=== PATIENT | male | born 1935 | race African-American/Black ===

== ENCOUNTER → 2018-02-24 | Outpatient (CLI) | payer MEDICARE, BC | END | disposition home or self-care (01) | LOC: RAD 11:41 | PROVIDERS: ATTEND Specialist | DX: S22.42XA Multiple fractures of ribs, left side, initial encounter for closed fracture (principal); M85.88 Other specified disorders of bone density and structure, other site; X58.XXXA Exposure to other specified factors, initial encounter; Y93.89 Activity, other specified; Y92.89 Other specified places as the place of occurrence of the external cause; Y99.8 Other external cause status | CPT/HCPCS: 71101 ==

== ENCOUNTER 2019-05-19 09:17 | Emergency (ER) | payer BC ==
[~2019-05-19] VITALS: Ht 182.9 cm; Wt 82.0 kg
[~2019-05-19 09:17] MED LIST: AMLO10TA80 PO; ASCO-339 PO; ATOR-2 PO; CARV3.1242 PO; LEVO100T9 PO; LOSA1TAB34 PO; [UNRECOGNIZED DRUG - CODE] PO
[2019-05-19] MEDS ORDERED: ACETAMINOPHEN 325MG TABLET PO ONE (10:45)
[2019-05-19] MEDS ORDERED: LIDOCAINE HCL/PF 1% 10 MG/ML 5ML VIAL IJ ONE (10:45)
[2019-05-19] MEDS ORDERED: BACITRACIN ZINC OINT UDPKT TOP ONE (10:45)
[2019-05-19] MEDS ORDERED: TETANUS, DIPHTHERIA, PERTUSSIS VAC/PF 0.5ML (>7YR OLD) IM ONE (10:45)
[2019-05-19] MEDS ORDERED: BACITRACIN 15GM TUBE TOP NR (11:00)
[2019-05-19 12:55] VITALS: BP 144/88
== END 2019-05-19 13:00 | disposition home or self-care (01) ==
LOC: ER 09:17
DX: S61.412A Laceration without foreign body of left hand, initial encounter (principal); S61.411A Laceration without foreign body of right hand, initial encounter; S91.312A Laceration without foreign body, left foot, initial encounter; S91.311A Laceration without foreign body, right foot, initial encounter; S61.511A Laceration without foreign body of right wrist, initial encounter; I10 Essential (primary) hypertension; W25.XXXA Contact with sharp glass, initial encounter; Y93.E1 Activity, personal bathing and showering; Y92.9 Unspecified place or not applicable; Z88.8 Allergy status to other drugs, medicaments and biological substances; Z79.82 Long term (current) use of aspirin
CPT/HCPCS: 12002; 73110; 73130; 73630; 90715; 99284; J3490

== ENCOUNTER 2021-08-22 14:47 | Emergency (ER) | payer BC ==
[~2021-08-22] VITALS: Ht 182.9 cm; Wt 81.6 kg
[~2021-08-22 14:47] MED LIST changes: +OMEP40CA20 MT; -[UNRECOGNIZED DRUG - CODE] PO
[2021-08-22 19:30] VITALS: BP 140/77
== END 2021-08-22 20:08 | disposition home or self-care (01) ==
LOC: ER 14:47
DX: S01.81XA Laceration without foreign body of other part of head, initial encounter (principal); S09.8XXA Other specified injuries of head, initial encounter; E78.00 Pure hypercholesterolemia, unspecified; M19.90 Unspecified osteoarthritis, unspecified site; I10 Essential (primary) hypertension; W01.0XXA Fall on same level from slipping, tripping and stumbling without subsequent striking against object, initial encounter; Y93.01 Activity, walking, marching and hiking; Y92.480 Sidewalk as the place of occurrence of the external cause; Z88.8 Allergy status to other drugs, medicaments and biological substances
CPT/HCPCS: 12011; 72170; 99284

== ENCOUNTER 2021-09-24 03:00 | Inpatient (IN) | payer BC ==
[~2021-09-24] VITALS: Ht 180.3 cm; Wt 68.6 kg
[2021-09-24] MEDS ORDERED: MORPHINE SULFATE 4 MG/ML CPJ (NOT FOR IM USE) IV STA (03:09)
[2021-09-24] MEDS ORDERED: ONDANSETRON HCL 4MG/2ML INJ IV STA (03:09)
[2021-09-24 03:38] LABS: BASOPHILS % 0.4 % (0.0-2.0); EOSINOPHILS % 1.5 % (0.0-5.0); HEMATOCRIT. 30.1 % (42.0-52.0); HEMOGLOBIN. 9.4 g/dL (14.0-18.0); LYMPHOCYTES % 14.4 % (20.0-50.0); MEAN CORPUSCULAR HEMOGLOBIN 22.7 pg (28.0-32.0); MEAN CORPUSCULAR VOLUME 72.3 fL (80.0-94.0); MEAN PLATELET VOLUME 7.5 fl (7.4-10.4); MONOCYTES % 8.3 % (2.0-8.0); NEUTROPHILS % 75.4 % (40.0-76.0); PLATELET 171 x1000/uL (130-400); RED BLOOD CELL COUNT 4.16 mill/uL (4.7-6.1); RED CELL DISTRIBUTION WIDTH 18.9 % (11.6-14.6)
[2021-09-24 03:44] LABS: CHLORIDE 108 mEq/L (98-107)
[2021-09-24] MEDS ORDERED: DOCUSATE SODIUM 100MG CAPSULE PO PRN (07:15)
[2021-09-24] MEDS ORDERED: CLONIDINE 0.1MG TABLET PO PRN (07:15)
[2021-09-24] MEDS ORDERED: ONDANSETRON HCL 4MG/2ML INJ IV PRN (07:15)
[2021-09-24] MEDS: AMLODIPINE 10MG TABLET PO SCH ×2 (07:15→09:00)
[2021-09-24] MEDS ORDERED: NALOXONE HCL 0.4MG/ML VIAL IV PRN (07:30)
[2021-09-24] MEDS: HYDROMORPHONE HCL/PF 2MG/ML CPJ IV PRN (12:29)
[2021-09-24 19:33] LABS: T4 FREE 1.18 ng/dL (0.76-1.46)
[2021-09-25] MEDS: HYDROMORPHONE HCL/PF 2MG/ML CPJ IV PRN ×3 (00:19→17:33)
[2021-09-25 04:00] VITALS: BP 146/74
[2021-09-25 04:48] VITALS: BP 134/63
[2021-09-25 07:51] LABS: BASOPHILS % 0.2 % (0.0-2.0); EOSINOPHILS % 0.5 % (0.0-5.0); HEMATOCRIT. 30.3 % (42.0-52.0); HEMOGLOBIN. 9.3 g/dL (14.0-18.0); LYMPHOCYTES % 7.9 % (20.0-50.0); MEAN CORPUSCULAR HEMOGLOBIN 22.4 pg (28.0-32.0); MEAN CORPUSCULAR VOLUME 73.1 fL (80.0-94.0); MEAN PLATELET VOLUME 8.8 fl (7.4-10.4); MONOCYTES % 8.7 % (2.0-8.0); NEUTROPHILS % 82.7 % (40.0-76.0); PLATELET 170 x1000/uL (130-400); RED BLOOD CELL COUNT 4.15 mill/uL (4.7-6.1); RED CELL DISTRIBUTION WIDTH 19.5 % (11.6-14.6)
[2021-09-25 07:54] LABS: CHLORIDE 107 mEq/L (98-107)
[2021-09-25 08:00] VITALS: BP 131/67
[2021-09-25] MEDS: AMLODIPINE 10MG TABLET PO SCH (09:16)
[2021-09-25] MEDS ORDERED: IPRATROPIUM/ALBUTEROL 0.5-3(2.5)MG/3ML NEB HHN PRN (11:45)
[2021-09-25 11:58] LABS: BG BASE EXCESS 2.7 mmol/L (-2.0-2.0); BG CARBOXYHEMOGLOBIN 0.3 % (0.5-1.5); BG DEOXYHEMOGLOBIN 6.8 % (0.0-5.0); BG FRACTION INSPIRED OXYGEN 32; BG HCO3 ACT 27.8 mmol/L (22.0-26.0); BG METHEMOGLOBIN 0.6 % (0.0-1.5); BG OXYGEN SATURATION 93.1 % (92.0-98.5); BG OXYHEMOGLOBIN 92.3 % (94.0-97.0); BG PCO2 45.5 mmHg (35.0-45.0); BG PH 7.404 (7.350-7.450); BG PO2 72.4 mmHg (75.0-100.0); BG SAMPLE SITE LEFT RADIAL; BG VENT MODE NASAL CANNULA
[2021-09-25 12:00] VITALS: BP 113/68
[2021-09-25] MEDS: LEVOTHYROXINE SODIUM 100MCG TABLET PO SCH (13:40)
[2021-09-25] MEDS: CARVEDILOL 3.125 MG TABLET PO SCH ×2 (13:41→20:53)
[2021-09-25 16:00] VITALS: BP 153/76
[2021-09-25] MEDS: CEFTRIAXONE 1,000 MG in DEXTROSE 5% WATER 50 ML IV SCH (16:09)
[2021-09-25] MEDS: METHYLPREDNISOLONE SOD SUCC 40 MG/ML VIAL IV SCH (17:24)
[2021-09-25 20:00] VITALS: BP 132/72
[2021-09-25] MEDS: IPRATROPIUM/ALBUTEROL 0.5-3(2.5)MG/3ML NEB HHN SCH (21:53)
[2021-09-26] VITALS: BP 122/63
[2021-09-26] MEDS: IPRATROPIUM/ALBUTEROL 0.5-3(2.5)MG/3ML NEB HHN SCH ×4 (01:20→21:44)
[2021-09-26 04:00] VITALS: BP 119/67
[2021-09-26 07:34] LABS: ETHANOL BLOOD < 10 mg/dL
[2021-09-26 08:00] VITALS: BP 113/75
[2021-09-26] MEDS: AMLODIPINE 10MG TABLET PO SCH (08:58)
[2021-09-26] MEDS: CARVEDILOL 3.125 MG TABLET PO SCH ×2 (08:59→22:15)
[2021-09-26] MEDS: LEVOTHYROXINE SODIUM 100MCG TABLET PO SCH (08:59)
[2021-09-26] MEDS: HYDROCODONE/APAP 7.5/325MG 1 TAB TABLET PO PRN ×2 (09:00→16:40)
[2021-09-26] MEDS: METHYLPREDNISOLONE SOD SUCC 40 MG/ML VIAL IV SCH ×2 (09:05→16:40)
[2021-09-26] MEDS ORDERED: IOHEXOL-350 100 ML BOTTLE ONE (10:58)
[2021-09-26] MEDS: ACETYLCYSTEINE 100MG/ML 10% VIAL 4ML INH SCH (15:08)
[2021-09-26] MEDS: CYCLOBENZAPRINE 10MG TABLET PO PRN (15:10)
[2021-09-26] MEDS: CEFTRIAXONE 1,000 MG in DEXTROSE 5% WATER 50 ML IV SCH (15:10)
[2021-09-26] MEDS ORDERED: FINA5TAB11 PO (19:54)
[2021-09-26] MEDS ORDERED: ALFU10TA9 PO (19:54)
[2021-09-26 20:00] VITALS: BP 120/58
[2021-09-27] VITALS: BP 141/72
[2021-09-27] MEDS: METHYLPREDNISOLONE SOD SUCC 40 MG/ML VIAL IV SCH ×2 (01:14→08:59)
[2021-09-27] MEDS: IPRATROPIUM/ALBUTEROL 0.5-3(2.5)MG/3ML NEB HHN SCH ×3 (01:31→20:14)
[2021-09-27] MEDS: ACETYLCYSTEINE 100MG/ML 10% VIAL 4ML INH SCH ×3 (01:31→20:15)
[2021-09-27 04:00] VITALS: BP 137/75
[2021-09-27] MEDS: HYDROCODONE/APAP 7.5/325MG 1 TAB TABLET PO PRN (04:01)
[2021-09-27 08:00] VITALS: BP 137/80
[2021-09-27] MEDS: LEVOTHYROXINE SODIUM 100MCG TABLET PO SCH (08:59)
[2021-09-27] MEDS: CARVEDILOL 3.125 MG TABLET PO SCH ×2 (08:59→21:30)
[2021-09-27] MEDS: AMLODIPINE 10MG TABLET PO SCH (08:59)
[2021-09-27 12:00] VITALS: BP 131/67
[2021-09-27] MEDS: CEFTRIAXONE 1,000 MG in DEXTROSE 5% WATER 50 ML IV SCH (13:02)
[2021-09-27] MEDS: FINASTERIDE 5MG TABLET PO SCH (13:02)
[2021-09-27] MEDS: OMEPRAZOLE 20MG CAPSULE EXTENDED RELEASE PO SCH (13:03)
[2021-09-27] MEDS: CYCLOBENZAPRINE 10MG TABLET PO PRN (13:07)
[2021-09-27 20:00] VITALS: BP 148/73
[2021-09-27] MEDS: TERAZOSIN HCL 5MG CAPSULE PO SCH (21:29)
[2021-09-27] MEDS: ASCORBIC ACID 500 MG TABLET PO SCH (21:29)
[2021-09-28] VITALS: BP 113/70
[2021-09-28] MEDS: IPRATROPIUM/ALBUTEROL 0.5-3(2.5)MG/3ML NEB HHN SCH ×3 (01:48→21:40)
[2021-09-28 04:00] VITALS: BP 139/111
[2021-09-28] MEDS: OMEPRAZOLE 20MG CAPSULE EXTENDED RELEASE PO SCH (06:42)
[2021-09-28 08:00] VITALS: BP 139/80
[2021-09-28] MEDS: LEVOTHYROXINE SODIUM 100MCG TABLET PO SCH (08:50)
[2021-09-28] MEDS: FINASTERIDE 5MG TABLET PO SCH (08:50)
[2021-09-28] MEDS: CARVEDILOL 3.125 MG TABLET PO SCH ×2 (08:51→20:51)
[2021-09-28] MEDS: AMLODIPINE 10MG TABLET PO SCH (08:52)
[2021-09-28] MEDS: ASCORBIC ACID 500 MG TABLET PO SCH ×2 (09:00→20:52)
[2021-09-28] MEDS ORDERED: PREDNISONE 20MG TABLET PO SCH (09:00)
[2021-09-28] MEDS ORDERED: LORAZEPAM 2MG/ML CPJ IV PRN (10:30)
[2021-09-28] MEDS: CEFTRIAXONE 1,000 MG in DEXTROSE 5% WATER 50 ML IV SCH (13:31)
[2021-09-28] MEDS: CYCLOBENZAPRINE 10MG TABLET PO PRN (13:54)
[2021-09-28 20:00] VITALS: BP 124/78
[2021-09-28] MEDS: TERAZOSIN HCL 5MG CAPSULE PO SCH (20:52)
[2021-09-28] MEDS: FAMOTIDINE 20MG TABLET PO SCH (20:53)
[2021-09-28] MEDS ORDERED: ZOLPIDEM TARTRATE 5MG TABLET PO PRN (21:00)
[2021-09-28] MEDS: ACETYLCYSTEINE 100MG/ML 10% VIAL 4ML INH SCH (21:50)
[2021-09-29] VITALS: BP 124/63
[2021-09-29] MEDS: IPRATROPIUM/ALBUTEROL 0.5-3(2.5)MG/3ML NEB HHN SCH ×4 (03:50→20:11)
[2021-09-29 04:00] VITALS: BP 95/54
[2021-09-29] MEDS: FAMOTIDINE 20MG TABLET PO SCH ×2 (06:46→21:02)
[2021-09-29] MEDS: ACETYLCYSTEINE 100MG/ML 10% VIAL 4ML INH SCH ×2 (08:43→13:55)
[2021-09-29] MEDS: LEVOTHYROXINE SODIUM 100MCG TABLET PO SCH (09:00)
[2021-09-29] MEDS: ASCORBIC ACID 500 MG TABLET PO SCH ×2 (11:18→21:02)
[2021-09-29] MEDS: AMLODIPINE 10MG TABLET PO SCH (11:19)
[2021-09-29] MEDS: FINASTERIDE 5MG TABLET PO SCH (11:19)
[2021-09-29] MEDS: CARVEDILOL 3.125 MG TABLET PO SCH ×2 (11:20→21:06)
[2021-09-29 13:00] VITALS: BP 119/70
[2021-09-29] MEDS: CEFTRIAXONE 1,000 MG in DEXTROSE 5% WATER 50 ML IV SCH (13:47)
[2021-09-29 16:19] VITALS: BP 123/76
[2021-09-29 16:35] LABS: HEMATOCRIT. 29.9 % (42.0-52.0); HEMOGLOBIN. 9.2 g/dL (14.0-18.0); MEAN CORPUSCULAR HEMOGLOBIN 22.2 pg (28.0-32.0); MEAN CORPUSCULAR VOLUME 72.7 fL (80.0-94.0); MEAN PLATELET VOLUME 8.8 fl (7.4-10.4); PLATELET 171 x1000/uL (130-400); RED BLOOD CELL COUNT 4.12 mill/uL (4.7-6.1)
[2021-09-29 16:52] LABS: CHLORIDE 101 mEq/L (98-107)
[2021-09-29 20:00] VITALS: BP 118/71
[2021-09-29 20:04] LABS: PLATELET ESTIMATE NORMAL
[2021-09-29] MEDS: TERAZOSIN HCL 5MG CAPSULE PO SCH (21:05)
[2021-09-29] MEDS: ACETAMINOPHEN 325MG TABLET PO PRN (21:05)
[2021-09-30] VITALS: BP 112/62
[2021-09-30] MEDS: ACETYLCYSTEINE 100MG/ML 10% VIAL 4ML INH SCH ×3 (00:36→14:45)
[2021-09-30] MEDS: IPRATROPIUM/ALBUTEROL 0.5-3(2.5)MG/3ML NEB HHN SCH ×4 (00:36→22:45)
[2021-09-30] MEDS: ACETAMINOPHEN 325MG TABLET PO PRN (01:24)
[2021-09-30 04:00] VITALS: BP 121/65
[2021-09-30] MEDS: FAMOTIDINE 20MG TABLET PO SCH ×2 (06:40→22:03)
[2021-09-30 08:00] VITALS: BP 108/45
[2021-09-30] MEDS: LEVOTHYROXINE SODIUM 100MCG TABLET PO SCH (09:15)
[2021-09-30] MEDS: FINASTERIDE 5MG TABLET PO SCH (09:16)
[2021-09-30] MEDS: AMLODIPINE 10MG TABLET PO SCH (09:16)
[2021-09-30] MEDS: CARVEDILOL 3.125 MG TABLET PO SCH ×2 (09:17→21:00)
[2021-09-30] MEDS: ASCORBIC ACID 500 MG TABLET PO SCH ×2 (09:17→22:03)
[2021-09-30 12:00] VITALS: BP 108/55
[2021-09-30 12:20] LABS: PROSTRATE SPECIFIC AG TOTAL 1.59 ng/mL (0.0-4.0)
[2021-09-30 16:00] VITALS: BP 110/58
[2021-09-30] MEDS: CEFTRIAXONE 1,000 MG in DEXTROSE 5% WATER 50 ML IV SCH (19:21)
[2021-09-30 20:00] VITALS: BP 98/56
[2021-09-30] MEDS: TERAZOSIN HCL 5MG CAPSULE PO SCH (22:03)
[2021-10-01] VITALS: BP 104/61
[2021-10-01 04:00] VITALS: BP 105/52
[2021-10-01 08:00] VITALS: BP 111/59
[2021-10-01] MEDS: ASCORBIC ACID 500 MG TABLET PO SCH ×2 (08:50→22:23)
[2021-10-01] MEDS: AMLODIPINE 10MG TABLET PO SCH (08:50)
[2021-10-01] MEDS: LEVOTHYROXINE SODIUM 100MCG TABLET PO SCH (08:50)
[2021-10-01] MEDS: FINASTERIDE 5MG TABLET PO SCH ×2 (08:50→22:23)
[2021-10-01] MEDS: CARVEDILOL 3.125 MG TABLET PO SCH ×2 (08:50→22:23)
[2021-10-01] MEDS: FAMOTIDINE 20MG TABLET PO SCH ×2 (08:51→22:23)
[2021-10-01] MEDS: ACETYLCYSTEINE 100MG/ML 10% VIAL 4ML INH SCH ×2 (09:17→14:15)
[2021-10-01] MEDS: IPRATROPIUM/ALBUTEROL 0.5-3(2.5)MG/3ML NEB HHN SCH ×3 (09:17→21:07)
[2021-10-01 12:00] VITALS: BP 105/64
[2021-10-01 14:06] LABS: BG BASE EXCESS 7.7 mmol/L (-2.0-2.0); BG CARBOXYHEMOGLOBIN 0.2 % (0.5-1.5); BG DEOXYHEMOGLOBIN 13.9 % (0.0-5.0); BG FRACTION INSPIRED OXYGEN 21; BG HCO3 ACT 31.3 mmol/L (22.0-26.0); BG METHEMOGLOBIN 0.2 % (0.0-1.5); BG OXYHEMOGLOBIN 85.7 % (94.0-97.0); BG PCO2 39.9 mmHg (35.0-45.0); BG PH 7.512 (7.350-7.450); BG PO2 50.1 mmHg (75.0-100.0); BG SAMPLE SITE LEFT BRACHIAL; BG TOTAL HEMOGLOBIN 10.2 g/dL (12.0-18.0); BG VENT MODE ROOM AIR
[2021-10-01 16:00] VITALS: BP 109/61
[2021-10-01 20:00] VITALS: BP 131/64
[2021-10-01] MEDS: TERAZOSIN HCL 5MG CAPSULE PO SCH (21:00)
[2021-10-02] VITALS: BP 134/65
[2021-10-02] MEDS: IPRATROPIUM/ALBUTEROL 0.5-3(2.5)MG/3ML NEB HHN SCH ×3 (01:39→20:03)
[2021-10-02 04:00] VITALS: BP 144/60
[2021-10-02] MEDS: FAMOTIDINE 20MG TABLET PO SCH ×2 (06:41→21:50)
[2021-10-02] MEDS: TERAZOSIN HCL 5MG CAPSULE PO SCH ×2 (06:44→21:00)
[2021-10-02 08:00] VITALS: BP 110/58
[2021-10-02] MEDS: AMLODIPINE 10MG TABLET PO SCH (10:59)
[2021-10-02] MEDS: FINASTERIDE 5MG TABLET PO SCH (10:59)
[2021-10-02] MEDS: ASCORBIC ACID 500 MG TABLET PO SCH ×2 (10:59→21:50)
[2021-10-02] MEDS: LEVOTHYROXINE SODIUM 100MCG TABLET PO SCH (10:59)
[2021-10-02 12:00] VITALS: BP 105/57
[2021-10-02 13:35] LABS: PROTHROMBIN TIME 10.5 sec (9.6-11.0)
[2021-10-02 16:00] VITALS: BP 109/61
[2021-10-02 20:00] VITALS: BP 104/58
[2021-10-03] VITALS: BP 107/59
[2021-10-03] MEDS: IPRATROPIUM/ALBUTEROL 0.5-3(2.5)MG/3ML NEB HHN SCH ×3 (03:42→20:43)
[2021-10-03 06:31] LABS: CHLORIDE 102 mEq/L (98-107)
[2021-10-03] MEDS: FAMOTIDINE 20MG TABLET PO SCH ×2 (06:39→20:47)
[2021-10-03 06:48] LABS: BASOPHILS % 0.8 % (0.0-2.0); EOSINOPHILS % 3.2 % (0.0-5.0); HEMATOCRIT. 28.9 % (42.0-52.0); HEMOGLOBIN. 9.1 g/dL (14.0-18.0); LYMPHOCYTES % 15.5 % (20.0-50.0); MEAN CORPUSCULAR HEMOGLOBIN 22.6 pg (28.0-32.0); MEAN CORPUSCULAR VOLUME 71.8 fL (80.0-94.0); MEAN PLATELET VOLUME 8.2 fl (7.4-10.4); MONOCYTES % 11.6 % (2.0-8.0); NEUTROPHILS % 68.9 % (40.0-76.0); PLATELET 194 x1000/uL (130-400); RED BLOOD CELL COUNT 4.02 mill/uL (4.7-6.1); RED CELL DISTRIBUTION WIDTH 19.4 % (11.6-14.6)
[2021-10-03 08:00] VITALS: BP 131/65
[2021-10-03] MEDS: ASCORBIC ACID 500 MG TABLET PO SCH ×2 (09:23→20:48)
[2021-10-03] MEDS: AMLODIPINE 10MG TABLET PO SCH (09:24)
[2021-10-03] MEDS: LEVOTHYROXINE SODIUM 100MCG TABLET PO SCH (09:24)
[2021-10-03] MEDS: FINASTERIDE 5MG TABLET PO SCH (09:24)
[2021-10-03 12:00] VITALS: BP 119/68
[2021-10-03 12:10] VITALS: BP 131/65
[2021-10-03 16:00] VITALS: BP 144/77
[2021-10-03 20:00] VITALS: BP 108/58
[2021-10-03] MEDS: TERAZOSIN HCL 5MG CAPSULE PO SCH (20:47)
== END 2021-10-04 00:01 | disposition home or self-care (01) | DRG 551 ==
LOC: ER 03:00 → MICUSO 05:45 → EDBEDREQTM 05:49 → EDBEDREQ 05:49 → ENRESERV 20:29 → 6EST 20:34 → 8WST 09-29 12:16
PROVIDERS: ADMIT Hospitalist; ATTEND Hospitalist
PROC: 4A10X4Z Monitoring of Central Nervous Electrical Activity, External Approach (ICD-10-PCS; principal; 2021-10-03)
DX: M48.061 Spinal stenosis, lumbar region without neurogenic claudication (principal); J96.01 Acute respiratory failure with hypoxia; I50.33 Acute on chronic diastolic (congestive) heart failure; G93.40 Encephalopathy, unspecified; E44.1 Mild protein-calorie malnutrition; G82.20 Paraplegia, unspecified; M48.54XA Collapsed vertebra, not elsewhere classified, thoracic region, initial encounter for fracture; W07.XXXA Fall from chair, initial encounter; D50.9 Iron deficiency anemia, unspecified; D63.8 Anemia in other chronic diseases classified elsewhere; E03.9 Hypothyroidism, unspecified; E78.5 Hyperlipidemia, unspecified; E78.00 Pure hypercholesterolemia, unspecified; K76.89 Other specified diseases of liver; H54.7 Unspecified visual loss; F09 Unspecified mental disorder due to known physiological condition; I44.0 Atrioventricular block, first degree; I73.9 Peripheral vascular disease, unspecified; M48.02 Spinal stenosis, cervical region; T38.0X5A Adverse effect of glucocorticoids and synthetic analogues, initial encounter; G89.29 Other chronic pain; M54.31 Sciatica, right side; I11.0 Hypertensive heart disease with heart failure; Z86.79 Personal history of other diseases of the circulatory system; Z87.891 Personal history of nicotine dependence; Z95.5 Presence of coronary angioplasty implant and graft; Z88.8 Allergy status to other drugs, medicaments and biological substances; Y92.89 Other specified places as the place of occurrence of the external cause; Z68.21 Body mass index [BMI] 21.0-21.9, adult; Y93.89 Activity, other specified; Y99.8 Other external cause status; R79.89 Other specified abnormal findings of blood chemistry; J44.9 Chronic obstructive pulmonary disease, unspecified
CPT/HCPCS: 36415; 36600; 70551; 71045; 71275; 72131; 72141; 72146; 72148; 72170; 74176; 80048; 80053; 80320; 82140; 82375; 82607; 82805; 83735; 83880; 84153; 84439; 84443; 84484; 85025; 85379; 86850; 86900; 93005; 94640; 94667; 95816; 97110; 97116; 97161; 97165; 99291; J0696; J1170; J2060; J2270; J2405; J2920; J7060; J7512; J7608; Q9967; G0103; G0480

== ENCOUNTER 2021-10-11 13:17 | Inpatient (IN) | payer BC ==
[~2021-10-11] VITALS: Ht 182.9 cm; Wt 68.7 kg
[~2021-10-11 13:17] MED LIST changes: +ALFU10TA9 PO; +FINA5TAB11 PO
[2021-10-11 15:07] LABS: BASOPHILS % 1.2 % (0.0-2.0); EOSINOPHILS % 3.1 % (0.0-5.0); HEMATOCRIT. 30.9 % (42.0-52.0); HEMOGLOBIN. 9.8 g/dL (14.0-18.0); LYMPHOCYTES % 20.8 % (20.0-50.0); MEAN CORPUSCULAR VOLUME 72.8 fL (80.0-94.0); MONOCYTES % 9.6 % (2.0-8.0); NEUTROPHILS % 65.3 % (40.0-76.0); PLATELET 236 x1000/uL (130-400); RED BLOOD CELL COUNT 4.25 mill/uL (4.7-6.1); RED CELL DISTRIBUTION WIDTH 19.9 % (11.6-14.6)
[2021-10-11 15:17] LABS: CHLORIDE 107 mEq/L (98-107)
[2021-10-12 01:00] VITALS: BP 120/69
[2021-10-12] MEDS ORDERED: ONDANSETRON HCL 4MG/2ML INJ IV PRN (01:15)
[2021-10-12] MEDS ORDERED: MAGNESIUM/ALUMINUM HYDROXIDE/SIMETHICONE 30ML UDC PO PRN (01:15)
[2021-10-12] MEDS ORDERED: ACETAMINOPHEN 325MG TABLET PO PRN (01:15)
[2021-10-12] MEDS ORDERED: GUAIFENESIN 200MG/10ML SUGAR FREE UDC PO PRN (01:15)
[2021-10-12] MEDS ORDERED: DIPHENHYDRAMINE 50MG/ML VIAL IV PRN (01:15)
[2021-10-12] MEDS ORDERED: IPRATROPIUM/ALBUTEROL 0.5-3(2.5)MG/3ML NEB HHN PRN (01:15)
[2021-10-12] MEDS ORDERED: CLONIDINE 0.1MG TABLET PO PRN (01:15)
[2021-10-12] MEDS: HYDROCODONE/ACETAMINOPHEN 5/325MG TABLET PO PRN ×3 (01:48→21:25)
[2021-10-12] MEDS: IPRATROPIUM/ALBUTEROL 0.5-3(2.5)MG/3ML NEB HHN SCH ×5 (01:53→20:56)
[2021-10-12] MEDS: OMEPRAZOLE 20MG CAPSULE EXTENDED RELEASE PO SCH ×2 (06:52→21:23)
[2021-10-12] MEDS: LEVOTHYROXINE SODIUM 100MCG TABLET PO SCH (06:53)
[2021-10-12 07:10] LABS: CHLORIDE 106 mEq/L (98-107)
[2021-10-12 07:16] LABS: PHOSPHORUS 3.1 mg/dL (2.5-4.9)
[2021-10-12 08:00] VITALS: BP 120/66
[2021-10-12] MEDS ORDERED: CARVEDILOL 3.125 MG TABLET PO SCH (09:00)
[2021-10-12] MEDS: ENOXAPARIN 40MG/0.4ML SYR SUBCUT SCH (09:24)
[2021-10-12] MEDS: FINASTERIDE 5MG TABLET PO SCH (09:24)
[2021-10-12] MEDS: AMLODIPINE 10MG TABLET PO SCH (09:25)
[2021-10-12 11:09] LABS: CLARITY URINE CLEAR (CLEAR); COLOR URINE YELLOW (YELLOW); KETONES URINE NEGATIVE (NEGATIVE); LEUKOCYTE ESTERASE URINE NEGATIVE (NEGATIVE); NITRITE URINE NEGATIVE (NEGATIVE); OCCULT BLOOD URINE NEGATIVE (NEGATIVE); PROTEIN URINE NEGATIVE (NEGATIVE)
[2021-10-12 12:00] VITALS: BP 92/58
[2021-10-12 16:00] VITALS: BP 104/60
[2021-10-12 20:00] VITALS: BP 126/61
[2021-10-12] MEDS: TERAZOSIN HCL 5MG CAPSULE PO SCH (21:24)
[2021-10-12] MEDS ORDERED: NALOXONE HCL 0.4MG/ML VIAL IV PRN (22:45)
[2021-10-13] VITALS: BP 102/53
[2021-10-13] MEDS: ACETYLCYSTEINE 100MG/ML 10% VIAL 4ML INH SCH ×3 (02:08→14:00)
[2021-10-13] MEDS: IPRATROPIUM/ALBUTEROL 0.5-3(2.5)MG/3ML NEB HHN SCH ×4 (02:08→20:40)
[2021-10-13 04:00] VITALS: BP 105/58
[2021-10-13] MEDS: OMEPRAZOLE 20MG CAPSULE EXTENDED RELEASE PO SCH ×2 (06:31→20:35)
[2021-10-13] MEDS: LEVOTHYROXINE SODIUM 100MCG TABLET PO SCH (06:31)
[2021-10-13] MEDS: HYDROCODONE/ACETAMINOPHEN 5/325MG TABLET PO PRN ×2 (06:38→18:15)
[2021-10-13 08:00] VITALS: BP 120/57
[2021-10-13] MEDS: FINASTERIDE 5MG TABLET PO SCH (08:17)
[2021-10-13] MEDS: AMLODIPINE 10MG TABLET PO SCH (08:17)
[2021-10-13] MEDS: ENOXAPARIN 40MG/0.4ML SYR SUBCUT SCH (08:18)
[2021-10-13 12:00] VITALS: BP 110/58
[2021-10-13 15:56] VITALS: BP 115/62
[2021-10-13 20:00] VITALS: BP 124/66
[2021-10-13] MEDS: TERAZOSIN HCL 5MG CAPSULE PO SCH (20:36)
[2021-10-14] VITALS: BP 111/64
[2021-10-14 04:00] VITALS: BP 106/64
[2021-10-14] MEDS: HYDROCODONE/ACETAMINOPHEN 5/325MG TABLET PO PRN ×2 (05:42→19:53)
[2021-10-14] MEDS: OMEPRAZOLE 20MG CAPSULE EXTENDED RELEASE PO SCH ×2 (06:19→20:53)
[2021-10-14] MEDS: LEVOTHYROXINE SODIUM 100MCG TABLET PO SCH (06:19)
[2021-10-14 07:51] VITALS: BP 110/62
[2021-10-14] MEDS: IPRATROPIUM/ALBUTEROL 0.5-3(2.5)MG/3ML NEB HHN SCH ×2 (08:23→14:33)
[2021-10-14] MEDS: ACETYLCYSTEINE 100MG/ML 10% VIAL 4ML INH SCH ×3 (08:23→22:00)
[2021-10-14] MEDS: FINASTERIDE 5MG TABLET PO SCH (08:45)
[2021-10-14] MEDS: ENOXAPARIN 40MG/0.4ML SYR SUBCUT SCH (08:45)
[2021-10-14] MEDS: AMLODIPINE 10MG TABLET PO SCH (08:45)
[2021-10-14 11:48] VITALS: BP 97/57
[2021-10-14 15:58] VITALS: BP 112/60
[2021-10-14 20:00] VITALS: BP 122/62
[2021-10-14] MEDS: TERAZOSIN HCL 5MG CAPSULE PO SCH (20:53)
[2021-10-15] VITALS: BP 114/55
[2021-10-15 03:12] VITALS: BP 112/65
[2021-10-15] MEDS: LEVOTHYROXINE SODIUM 100MCG TABLET PO SCH (05:57)
[2021-10-15] MEDS: OMEPRAZOLE 20MG CAPSULE EXTENDED RELEASE PO SCH ×2 (05:57→20:05)
[2021-10-15 08:00] VITALS: BP 122/72
[2021-10-15] MEDS: FINASTERIDE 5MG TABLET PO SCH (09:17)
[2021-10-15] MEDS: ENOXAPARIN 40MG/0.4ML SYR SUBCUT SCH (09:17)
[2021-10-15] MEDS: AMLODIPINE 10MG TABLET PO SCH (09:17)
[2021-10-15] MEDS: IPRATROPIUM/ALBUTEROL 0.5-3(2.5)MG/3ML NEB HHN SCH ×2 (09:43→19:15)
[2021-10-15 12:00] VITALS: BP 117/66
[2021-10-15 16:00] VITALS: BP 113/64
[2021-10-15] MEDS: ACETAMINOPHEN 325MG TABLET PO PRN (17:49)
[2021-10-15] MEDS: HYDROCODONE/ACETAMINOPHEN 5/325MG TABLET PO PRN (17:55)
[2021-10-15 20:00] VITALS: BP 116/56
[2021-10-15] MEDS: TERAZOSIN HCL 5MG CAPSULE PO SCH (20:12)
[2021-10-16] VITALS: BP 112/62
[2021-10-16 04:00] VITALS: BP 119/66
[2021-10-16] MEDS: LEVOTHYROXINE SODIUM 100MCG TABLET PO SCH (06:24)
[2021-10-16] MEDS: OMEPRAZOLE 20MG CAPSULE EXTENDED RELEASE PO SCH (06:24)
[2021-10-16] MEDS: HYDROCODONE/ACETAMINOPHEN 5/325MG TABLET PO PRN ×2 (06:29→20:13)
[2021-10-16] MEDS: IPRATROPIUM/ALBUTEROL 0.5-3(2.5)MG/3ML NEB HHN SCH ×3 (07:47→20:34)
[2021-10-16 08:12] VITALS: BP 121/68
[2021-10-16] MEDS: FINASTERIDE 5MG TABLET PO SCH (08:39)
[2021-10-16] MEDS: AMLODIPINE 10MG TABLET PO SCH (08:39)
[2021-10-16] MEDS: ENOXAPARIN 40MG/0.4ML SYR SUBCUT SCH (08:40)
[2021-10-16 12:41] VITALS: BP 115/67
[2021-10-16] MEDS: ACETYLCYSTEINE 100MG/ML 10% VIAL 4ML INH SCH (14:00)
[2021-10-16 15:31] VITALS: BP 105/62
[2021-10-16 20:00] VITALS: BP 126/64
[2021-10-16] MEDS: FAMOTIDINE 20MG TABLET PO SCH (20:13)
[2021-10-16] MEDS: TERAZOSIN HCL 5MG CAPSULE PO SCH (20:14)
[2021-10-17] VITALS: BP 140/60
[2021-10-17] MEDS: IPRATROPIUM/ALBUTEROL 0.5-3(2.5)MG/3ML NEB HHN SCH (01:45)
[2021-10-17 04:00] VITALS: BP 120/69
[2021-10-17] MEDS: LEVOTHYROXINE SODIUM 100MCG TABLET PO SCH (06:37)
[2021-10-17] MEDS: FAMOTIDINE 20MG TABLET PO SCH ×2 (06:37→20:47)
[2021-10-17 08:00] VITALS: BP 131/67
[2021-10-17] MEDS: ENOXAPARIN 40MG/0.4ML SYR SUBCUT SCH (09:31)
[2021-10-17] MEDS: FINASTERIDE 5MG TABLET PO SCH (09:31)
[2021-10-17] MEDS: AMLODIPINE 10MG TABLET PO SCH (09:31)
[2021-10-17] MEDS ORDERED: MAGNESIUM HYDROXIDE 400MG/5ML 30ML UDC PO SCH (11:30)
[2021-10-17] MEDS: HYDROCODONE/ACETAMINOPHEN 5/325MG TABLET PO PRN (11:35)
[2021-10-17 12:00] VITALS: BP 128/76
[2021-10-17] MEDS ORDERED: IPRATROPIUM/ALBUTEROL 0.5-3(2.5)MG/3ML NEB HHN PRN (14:00)
[2021-10-17] MEDS ORDERED: ACETYLCYSTEINE 100MG/ML 10% VIAL 4ML INH PRN (14:00)
[2021-10-17 16:00] VITALS: BP 125/66
[2021-10-17] MEDS ORDERED: MAGNESIUM HYDROXIDE 400MG/5ML 30ML UDC PO PRN (18:30)
[2021-10-17 20:00] VITALS: BP 138/72
[2021-10-17] MEDS: TERAZOSIN HCL 5MG CAPSULE PO SCH (20:47)
[2021-10-18] VITALS: BP 97/48
[2021-10-18 04:00] VITALS: BP 114/63
[2021-10-18] MEDS: LEVOTHYROXINE SODIUM 100MCG TABLET PO SCH (06:08)
[2021-10-18] MEDS: FAMOTIDINE 20MG TABLET PO SCH ×2 (06:08→21:15)
[2021-10-18 08:00] VITALS: BP 111/66
[2021-10-18] MEDS: FINASTERIDE 5MG TABLET PO SCH (09:11)
[2021-10-18] MEDS: ENOXAPARIN 40MG/0.4ML SYR SUBCUT SCH (09:12)
[2021-10-18] MEDS: AMLODIPINE 10MG TABLET PO SCH (09:12)
[2021-10-18 12:00] VITALS: BP 115/64
[2021-10-18 16:00] VITALS: BP 114/61
[2021-10-18 20:00] VITALS: BP 116/74
[2021-10-18] MEDS: TERAZOSIN HCL 5MG CAPSULE PO SCH (21:15)
[2021-10-19] VITALS: BP 105/69
[2021-10-19 04:00] VITALS: BP 113/67
[2021-10-19] MEDS: FAMOTIDINE 20MG TABLET PO SCH ×2 (05:26→20:38)
[2021-10-19] MEDS: LEVOTHYROXINE SODIUM 100MCG TABLET PO SCH (05:26)
[2021-10-19 08:00] VITALS: BP 114/51
[2021-10-19] MEDS: FINASTERIDE 5MG TABLET PO SCH (09:02)
[2021-10-19] MEDS: ENOXAPARIN 40MG/0.4ML SYR SUBCUT SCH (09:03)
[2021-10-19] MEDS: AMLODIPINE 10MG TABLET PO SCH (09:03)
[2021-10-19 12:13] VITALS: BP 111/61
[2021-10-19 16:30] VITALS: BP 113/62
[2021-10-19 20:00] VITALS: BP 103/70
[2021-10-19] MEDS: TERAZOSIN HCL 5MG CAPSULE PO SCH (21:00)
[2021-10-20] VITALS: BP 119/68
[2021-10-20 02:11] LABS: CHLORIDE 103 mEq/L (98-107)
[2021-10-20 04:00] VITALS: BP 116/64
[2021-10-20] MEDS: LEVOTHYROXINE SODIUM 100MCG TABLET PO SCH (06:12)
[2021-10-20] MEDS: FAMOTIDINE 20MG TABLET PO SCH ×2 (06:12→20:34)
[2021-10-20 07:49] VITALS: BP 118/64
[2021-10-20] MEDS: AMLODIPINE 10MG TABLET PO SCH (08:23)
[2021-10-20] MEDS: FINASTERIDE 5MG TABLET PO SCH (08:23)
[2021-10-20] MEDS: ENOXAPARIN 40MG/0.4ML SYR SUBCUT SCH (08:24)
[2021-10-20 12:00] VITALS: BP 116/66
[2021-10-20 16:00] VITALS: BP 119/67
[2021-10-20 20:00] VITALS: BP 118/64
[2021-10-20] MEDS: TERAZOSIN HCL 5MG CAPSULE PO SCH (20:34)
[2021-10-21] VITALS: BP 121/70
[2021-10-21 04:00] VITALS: BP 113/63
[2021-10-21] MEDS: LEVOTHYROXINE SODIUM 100MCG TABLET PO SCH (05:47)
[2021-10-21] MEDS: FAMOTIDINE 20MG TABLET PO SCH ×2 (05:47→20:44)
[2021-10-21 06:32] LABS: BASOPHILS % 0.7 % (0.0-2.0); EOSINOPHILS % 4.4 % (0.0-5.0); HEMATOCRIT. 28.4 % (42.0-52.0); LYMPHOCYTES % 22.7 % (20.0-50.0); MEAN CORPUSCULAR HEMOGLOBIN 22.8 pg (28.0-32.0); MEAN CORPUSCULAR VOLUME 72.4 fL (80.0-94.0); MEAN PLATELET VOLUME 9.2 fl (7.4-10.4); MONOCYTES % 10.9 % (2.0-8.0); NEUTROPHILS % 61.3 % (40.0-76.0); PLATELET 200 x1000/uL (130-400); RED BLOOD CELL COUNT 3.93 mill/uL (4.7-6.1); RED CELL DISTRIBUTION WIDTH 19.8 % (11.6-14.6)
[2021-10-21 08:00] VITALS: BP 130/70
[2021-10-21] MEDS: FINASTERIDE 5MG TABLET PO SCH (09:16)
[2021-10-21] MEDS: AMLODIPINE 10MG TABLET PO SCH (09:16)
[2021-10-21] MEDS: ENOXAPARIN 40MG/0.4ML SYR SUBCUT SCH (09:17)
[2021-10-21 12:00] VITALS: BP 117/67
[2021-10-21 16:00] VITALS: BP 116/63
[2021-10-21 20:00] VITALS: BP 120/68
[2021-10-21] MEDS: TERAZOSIN HCL 5MG CAPSULE PO SCH (20:43)
[2021-10-22] VITALS: BP 112/60
[2021-10-22 04:00] VITALS: BP 121/59
[2021-10-22] MEDS: LEVOTHYROXINE SODIUM 100MCG TABLET PO SCH (06:13)
[2021-10-22] MEDS: FAMOTIDINE 20MG TABLET PO SCH ×2 (06:13→20:22)
[2021-10-22 06:23] LABS: CHLORIDE 103 mEq/L (98-107)
[2021-10-22 06:26] LABS: BASOPHILS % 1.5 % (0.0-2.0); EOSINOPHILS % 4.9 % (0.0-5.0); HEMATOCRIT. 28.2 % (42.0-52.0); HEMOGLOBIN. 9.1 g/dL (14.0-18.0); LYMPHOCYTES % 17.2 % (20.0-50.0); MEAN CORPUSCULAR VOLUME 71.5 fL (80.0-94.0); MEAN PLATELET VOLUME 9.2 fl (7.4-10.4); MONOCYTES % 12.8 % (2.0-8.0); NEUTROPHILS % 63.6 % (40.0-76.0); PLATELET 207 x1000/uL (130-400); RED BLOOD CELL COUNT 3.94 mill/uL (4.7-6.1); RED CELL DISTRIBUTION WIDTH 19.8 % (11.6-14.6)
[2021-10-22] MEDS: AMLODIPINE 10MG TABLET PO SCH (08:53)
[2021-10-22] MEDS: FINASTERIDE 5MG TABLET PO SCH (08:53)
[2021-10-22] MEDS: ENOXAPARIN 40MG/0.4ML SYR SUBCUT SCH (08:54)
[2021-10-22] MEDS: HYDROCODONE/ACETAMINOPHEN 5/325MG TABLET PO PRN (08:56)
[2021-10-22 20:00] VITALS: BP 103/58
[2021-10-22] MEDS: TERAZOSIN HCL 5MG CAPSULE PO SCH (20:22)
[2021-10-23] VITALS: BP 114/63
[2021-10-23 04:00] VITALS: BP 117/64
[2021-10-23] MEDS: LEVOTHYROXINE SODIUM 100MCG TABLET PO SCH (06:10)
[2021-10-23] MEDS: FAMOTIDINE 20MG TABLET PO SCH ×2 (06:10→21:43)
[2021-10-23 08:00] VITALS: BP 116/69
[2021-10-23] MEDS: ENOXAPARIN 40MG/0.4ML SYR SUBCUT SCH (09:00)
[2021-10-23] MEDS: AMLODIPINE 10MG TABLET PO SCH (09:53)
[2021-10-23] MEDS: FINASTERIDE 5MG TABLET PO SCH (09:53)
[2021-10-23 12:00] VITALS: BP 122/70
[2021-10-23] MEDS ORDERED: TRAMADOL 50MG TABLET PO PRN (15:45)
[2021-10-23 16:00] VITALS: BP 110/61
[2021-10-23 20:00] VITALS: BP 148/87
[2021-10-23] MEDS: TERAZOSIN HCL 5MG CAPSULE PO SCH (21:43)
[2021-10-24] VITALS: BP 144/79
[2021-10-24 04:00] VITALS: BP 128/57
[2021-10-24] MEDS: FAMOTIDINE 20MG TABLET PO SCH ×2 (06:37→21:40)
[2021-10-24] MEDS: LEVOTHYROXINE SODIUM 100MCG TABLET PO SCH (06:37)
[2021-10-24 08:00] VITALS: BP 115/67
[2021-10-24] MEDS: ENOXAPARIN 40MG/0.4ML SYR SUBCUT SCH (08:41)
[2021-10-24] MEDS: AMLODIPINE 10MG TABLET PO SCH (08:51)
[2021-10-24] MEDS: FINASTERIDE 5MG TABLET PO SCH (08:51)
[2021-10-24] MEDS ORDERED: NALOXONE HCL 0.4MG/ML VIAL IV PRN (11:00)
[2021-10-24 12:00] VITALS: BP 118/66
[2021-10-24 16:00] VITALS: BP 120/58
[2021-10-24 20:00] VITALS: BP 118/69
[2021-10-24] MEDS: TERAZOSIN HCL 5MG CAPSULE PO SCH (21:41)
[2021-10-25] VITALS: BP 113/67
[2021-10-25 04:00] VITALS: BP 119/68
[2021-10-25] MEDS: LEVOTHYROXINE SODIUM 100MCG TABLET PO SCH (06:32)
[2021-10-25] MEDS: FAMOTIDINE 20MG TABLET PO SCH ×2 (06:32→21:14)
[2021-10-25 08:00] VITALS: BP 115/71
[2021-10-25] MEDS: ENOXAPARIN 40MG/0.4ML SYR SUBCUT SCH ×2 (09:00→09:02)
[2021-10-25] MEDS: FINASTERIDE 5MG TABLET PO SCH (09:01)
[2021-10-25] MEDS: AMLODIPINE 10MG TABLET PO SCH (09:01)
[2021-10-25 12:00] VITALS: BP 129/69
[2021-10-25 16:00] VITALS: BP 129/72
[2021-10-25 20:00] VITALS: BP 120/70
[2021-10-25] MEDS: TERAZOSIN HCL 5MG CAPSULE PO SCH (21:14)
[2021-10-26] VITALS: BP 117/68
[2021-10-26 04:00] VITALS: BP_SYST 120; BP_SYST 124; BP_DIAS 70; BP_DIAS 71
[2021-10-26] MEDS: LEVOTHYROXINE SODIUM 100MCG TABLET PO SCH (06:14)
[2021-10-26] MEDS: FAMOTIDINE 20MG TABLET PO SCH ×2 (06:14→21:12)
[2021-10-26 08:00] VITALS: BP 130/73
[2021-10-26] MEDS: FINASTERIDE 5MG TABLET PO SCH (10:21)
[2021-10-26] MEDS: AMLODIPINE 10MG TABLET PO SCH (10:21)
[2021-10-26] MEDS: ENOXAPARIN 40MG/0.4ML SYR SUBCUT SCH (10:22)
[2021-10-26 12:00] VITALS: BP_SYST 121; BP_SYST 122; BP_DIAS 66; BP_DIAS 71
[2021-10-26 16:00] VITALS: BP 121/71
[2021-10-26 20:00] VITALS: BP 126/72
[2021-10-26] MEDS: TERAZOSIN HCL 5MG CAPSULE PO SCH (21:13)
[2021-10-27] VITALS (7 sets, daily range): BP systolic 93–130; BP diastolic 55–76
[2021-10-27 06:33] LABS: BASOPHILS % 0.7 % (0.0-2.0); CHLORIDE 99 mEq/L (98-107); EOSINOPHILS % 1.5 % (0.0-5.0); HEMATOCRIT. 28.5 % (42.0-52.0); HEMOGLOBIN. 9.2 g/dL (14.0-18.0); LYMPHOCYTES % 9.4 % (20.0-50.0); MEAN CORPUSCULAR HEMOGLOBIN 23.1 pg (28.0-32.0); MEAN CORPUSCULAR VOLUME 71.8 fL (80.0-94.0); MEAN PLATELET VOLUME 9.5 fl (7.4-10.4); MONOCYTES % 11.2 % (2.0-8.0); NEUTROPHILS % 77.2 % (40.0-76.0); PLATELET 201 x1000/uL (130-400); RED BLOOD CELL COUNT 3.96 mill/uL (4.7-6.1); RED CELL DISTRIBUTION WIDTH 19.6 % (11.6-14.6)
[2021-10-27] MEDS: ENOXAPARIN 40MG/0.4ML SYR SUBCUT SCH ×2 (09:00→09:17)
[2021-10-27] MEDS: AMLODIPINE 10MG TABLET PO SCH (09:15)
[2021-10-27] MEDS: FINASTERIDE 5MG TABLET PO SCH (09:16)
[2021-10-27] MEDS: LEVOTHYROXINE SODIUM 100MCG TABLET PO SCH (09:16)
[2021-10-27] MEDS: FAMOTIDINE 20MG TABLET PO SCH ×2 (09:16→20:31)
[2021-10-27] MEDS: ACETAMINOPHEN 325MG TABLET PO PRN ×2 (09:17→19:39)
[2021-10-27] MEDS: TERAZOSIN HCL 5MG CAPSULE PO SCH (20:31)
[2021-10-28] VITALS: BP 104/62
[2021-10-28 04:00] VITALS: BP 116/57
[2021-10-28 08:00] VITALS: BP 117/66
[2021-10-28] MEDS: AMLODIPINE 10MG TABLET PO SCH (08:51)
[2021-10-28] MEDS: FAMOTIDINE 20MG TABLET PO SCH (08:51)
[2021-10-28] MEDS: FINASTERIDE 5MG TABLET PO SCH (08:52)
[2021-10-28] MEDS: LEVOTHYROXINE SODIUM 100MCG TABLET PO SCH (08:52)
[2021-10-28] MEDS: ACETAMINOPHEN 325MG TABLET PO PRN (08:52)
[2021-10-28] MEDS: ENOXAPARIN 40MG/0.4ML SYR SUBCUT SCH (08:53)
[2021-10-28 12:00] VITALS: BP 96/54
[2021-10-28 14:18] VITALS: BP 96/54
== END 2021-10-28 15:45 | DRG 189 ==
LOC: ER 13:17 → 8WST 20:21 → ENRESERV 23:23 → 6EST 10-24 10:06
PROVIDERS: ADMIT Internal Medicine; ATTEND Internal Medicine
DX: J96.01 Acute respiratory failure with hypoxia (principal); J84.9 Interstitial pulmonary disease, unspecified; E03.9 Hypothyroidism, unspecified; E78.00 Pure hypercholesterolemia, unspecified; I10 Essential (primary) hypertension; Z20.822 Contact with and (suspected) exposure to COVID-19; M48.061 Spinal stenosis, lumbar region without neurogenic claudication; M19.90 Unspecified osteoarthritis, unspecified site; I73.9 Peripheral vascular disease, unspecified; E78.5 Hyperlipidemia, unspecified; Z75.1 Person awaiting admission to adequate facility elsewhere; Z86.79 Personal history of other diseases of the circulatory system; Z87.891 Personal history of nicotine dependence; Z88.0 Allergy status to penicillin; Z82.49 Family history of ischemic heart disease and other diseases of the circulatory system; Z99.81 Dependence on supplemental oxygen; Z88.8 Allergy status to other drugs, medicaments and biological substances; G89.29 Other chronic pain; I44.0 Atrioventricular block, first degree
CPT/HCPCS: 36415; 71045; 80048; 80053; 81003; 83735; 83880; 84100; 85025; 87426; 93005; 94640; 94644; 97116; 97162; 97166; 97530; 99285; J1650; J7608